=== PATIENT | male | born 1950 | race African-American/Black ===

== ENCOUNTER → 2016-05-27 | Outpatient (CLI) | payer MEDICARE, MEDICAID | END | disposition home or self-care (01) | LOC: RAD 11:39 | PROVIDERS: ATTEND Family Medicine | DX: M17.12 Unilateral primary osteoarthritis, left knee (principal); S89.92XA Unspecified injury of left lower leg, initial encounter; X58.XXXA Exposure to other specified factors, initial encounter; Y93.89 Activity, other specified; Y92.89 Other specified places as the place of occurrence of the external cause; Y99.8 Other external cause status | CPT/HCPCS: 73562 ==

== ENCOUNTER 2018-02-13 11:18 | Emergency (ER) | payer MEDICARE, MEDICAID ==
[~2018-02-13] VITALS: Ht 193 cm; Wt 127.5 kg
[2018-02-13] MEDS ORDERED: metformin (11:35)
[2018-02-13] MEDS ORDERED: naproxen (11:35)
[2018-02-13] MEDS ORDERED: insulin (11:35)
[2018-02-13] MEDS ORDERED: CALCIUM CARBONATE 500MG TABLET CHEW PO ONE (12:30)
[2018-02-13 12:46] LABS: CHLORIDE 105 mEq/L (98-107)
[2018-02-13 12:48] LABS: PROTHROMBIN TIME 10.2 sec (9.1-11.1)
[2018-02-13 12:49] LABS: BASOPHILS % 0.6 % (0.0-2.0); EOSINOPHILS % 0.7 % (0.0-5.0); HEMATOCRIT. 44.6 % (42.0-52.0); HEMOGLOBIN. 14.8 g/dL (14.0-18.0); LYMPHOCYTES % 16.8 % (20.0-50.0); MEAN CORPUSCULAR HEMOGLOBIN 27.4 pg (28.0-32.0); MEAN CORPUSCULAR VOLUME 82.9 fL (80.0-94.0); MEAN PLATELET VOLUME 8.2 fl (7.4-10.4); MONOCYTES % 10.7 % (2.0-8.0); NEUTROPHILS % 71.2 % (40.0-76.0); PLATELET 255 x1000/uL (130-400); RED BLOOD CELL COUNT 5.38 mill/uL (4.7-6.1); RED CELL DISTRIBUTION WIDTH 15.4 % (11.6-14.6)
[2018-02-13 13:24] LABS: CLARITY URINE CLEAR (CLEAR); COLOR URINE YELLOW (YELLOW); KETONES URINE NEGATIVE (NEGATIVE); LEUKOCYTE ESTERASE URINE NEGATIVE (NEGATIVE); NITRITE URINE NEGATIVE (NEGATIVE); OCCULT BLOOD URINE TRACE (NEGATIVE); PROTEIN URINE NEGATIVE (NEGATIVE); SPECIFIC GRAVITY URINE 1.021 (1.005-1.030); UROBILINOGEN URINE 0.2 E.U./dL (0.2-1.0)
[2018-02-13] MEDS ORDERED: ASPIRIN 325MG TABLET PO ONE (14:30)
[2018-02-13] MEDS ORDERED: ACETAMINOPHEN 325MG TABLET PO PRN (16:30)
[2018-02-13] MEDS ORDERED: ONDANSETRON HCL 4MG/2ML INJ IV PRN (16:30)
[2018-02-13] MEDS ORDERED: CLONIDINE 0.1MG TABLET PO PRN (16:30)
[2018-02-13] MEDS ORDERED: MECLIZINE 25MG TABLET PO PRN (16:45)
[2018-02-13] MEDS ORDERED: AMLODIPINE 5MG TABLET PO SCH (21:00)
[2018-02-13 22:36] VITALS: BP 160/89
== END 2018-02-13 23:14 | disposition short-term general hospital (02) ==
LOC: ER 12:26 → ENRESERV 19:55 → ER 23:14 → CANBEDREQ 02-15 17:11
DX: G90.8 Other disorders of autonomic nervous system (principal); I10 Essential (primary) hypertension; E77.9 Disorder of glycoprotein metabolism, unspecified; Z79.899 Other long term (current) drug therapy; Z88.0 Allergy status to penicillin; Z85.818 Personal history of malignant neoplasm of other sites of lip, oral cavity, and pharynx
CPT/HCPCS: 36415; 70450; 71045; 80053; 81003; 84484; 85025; 85610; 93005; 96374; 99285; J2405; J8597

== ENCOUNTER → 2018-09-20 | Outpatient (CLI) | payer MEDICARE, MEDICAID ==
[~2018-09-20] MED LIST: insulin; metformin; naproxen
== END | disposition home or self-care (01) ==
LOC: RAD 12:05
PROVIDERS: ATTEND Family Medicine
DX: M17.11 Unilateral primary osteoarthritis, right knee (principal); M16.11 Unilateral primary osteoarthritis, right hip
CPT/HCPCS: 73552; 73590; 93971

== ENCOUNTER → 2018-10-10 | Outpatient (CLI) | payer MEDICARE, MEDICAID | END | disposition home or self-care (01) | LOC: PVL 09:27 | PROVIDERS: ATTEND Podiatrist Foot & Ankle Surgery | DX: E11.621 Type 2 diabetes mellitus with foot ulcer (principal); E11.51 Type 2 diabetes mellitus with diabetic peripheral angiopathy without gangrene | CPT/HCPCS: 73630; 93923 ==